=== PATIENT | male | born 1965 | race Caucasian/White ===

== ENCOUNTER 2022-11-06 11:23 | Emergency (ER) | payer OTHER ==
[~2022-11-06] VITALS: Ht 177.8 cm; Wt 63.5 kg
[~2022-11-06 11:23] MED LIST: AMOX500 PO; CYCL10 PO; DIAZ5 PO; DOXY100 PO; GUAPHELA PO; HYDACE5 PO; IBUP600; IBUP600 PO; IBUP800 PO; LAMO25; LORA10ER PO; NAPR550 PO; Norco 5-325 Ta1 EACH PO; OXYACE5T PO; PRED10 PO; QUET200 PO; RXHYDACE PO; RXNAPNA550 PO; TOBDEXOPSU OP; TRAM50 PO; TRAZ50 PO; VALARIAN ROOT
[2022-11-06 11:36] VITALS: BP 108/96
== END 2022-11-06 13:46 | disposition home or self-care (01) ==
LOC: ER 11:23
DX: H61.21 Impacted cerumen, right ear (principal); F17.200 Nicotine dependence, unspecified, uncomplicated; Z88.8 Allergy status to other drugs, medicaments and biological substances
CPT/HCPCS: 69209; 96372-59; 99282-25; A9270; J1885

== ENCOUNTER 2022-11-09 14:26 | Emergency (ER) | payer OTHER ==
[~2022-11-09] VITALS: Ht 177.8 cm; Wt 63.5 kg
[2022-11-09 14:29] VITALS: BP 88/50
[2022-11-09] MEDS ORDERED: VALA500 PO (16:46)
== END 2022-11-09 17:32 | disposition home or self-care (01) ==
LOC: ER 14:26
DX: B02.9 Zoster without complications (principal); F17.200 Nicotine dependence, unspecified, uncomplicated; Z88.8 Allergy status to other drugs, medicaments and biological substances; Z79.899 Other long term (current) drug therapy
CPT/HCPCS: 96372; 99283-25; A9270; J1885

== ENCOUNTER 2023-02-16 12:17 | Emergency (ER) | payer OTHER ==
[~2023-02-16] VITALS: Ht 177.8 cm; Wt 63.5 kg
[~2023-02-16 12:17] MED LIST changes: +VALA500 PO
[2023-02-16 12:19] VITALS: BP 100/74
[2023-02-16 12:42] LABS: BASOPHILS ABSOLUTE AUTO 0.03 K/mm3 (0.00-0.23); BASOPHILS PERCENT AUTO 1 % (0-2); EOSINOPHILS ABSOLUTE AUTO 0.06 K/mm3 (0.00-0.68); EOSINOPHILS PERCENT AUTO 1 % (0-6); Hemoglobin 19.2 g/dL (13.5-17.5); IMMATURE GRAN ABSOLUTE AUTO 0.03 K/mm3 (0.00-0.10); IMMATURE GRAN PERCENT AUTO 1 % (0-1); LYMPHOCYTES ABSOLUTE AUTO 1.62 K/mm3 (0.84-5.20); LYMPHOCYTES PERCENT AUTO 37 % (21-46); MONOCYTES ABSOLUTE AUTO 0.76 K/mm3 (0.16-1.47); MONOCYTES PERCENT AUTO 17 % (4-13); Mean Corpuscular HGB 28.7 pg (26.0-34.0); Mean Corpuscular HGB Conc 33.9 g/dL (31.5-36.5); Mean Corpuscular Volume 85 fL (80-100); Mean Platelet Volume 10.3 fL (9.1-12.4); NEUTROPHILS ABSOLUTE AUTO 1.91 K/mm3 (1.96-9.15); NEUTROPHILS PERCENT AUTO 43 % (41-73); Platelet Count 204 K/mm3 (150-400); RDW Coefficient Variation 14.4 % (11.7-14.2); RDW Standard Deviation 42.7 fL (35.1-46.3); White Blood Cell Count 4.41 K/mm3 (4.00-11.30)
[2023-02-16 12:45] LABS: Hematocrit 56.6 % (37.0-53.0)
[2023-02-16 13:01] LABS: Albumin, Blood 3.7 g/dL (3.4-5.0); Albumin/Globulin Ratio 0.8 (0.8-1.8); Bilirubin, Total 0.6 mg/dL (0.1-1.0); Bun/Creatinine Ratio 17.7 (12.0-20.0); Creatinine, Blood 1.13 mg/dL (0.60-1.20); Globulin, Blood 4.5 g/dL (2.2-4.0); Potassium, Blood 4.4 mmol/L (3.5-5.5); Total Protein, Blood 8.2 g/dL (6.4-8.2)
[2023-02-16 13:09] LABS: Influenza A, PCR NEGATIVE (NEGATIVE); Influenza B, PCR NEGATIVE (NEGATIVE); Resp Syncytial Virus, PCR NEGATIVE (NEGATIVE)
[2023-02-16 13:24] LABS: SARS-Cov-2 (COVID-19) PCR, MMC POSITIVE (NEGATIVE)
[2023-02-16] MEDS ORDERED: IBUP800 PO (14:34)
== END 2023-02-16 15:38 | disposition home or self-care (01) ==
LOC: ER 12:17
PROVIDERS: Student in an Organized Health Care Education/Training Program
DX: U07.1 COVID-19 (principal); F17.200 Nicotine dependence, unspecified, uncomplicated; Z88.8 Allergy status to other drugs, medicaments and biological substances
CPT/HCPCS: 0241U; 71046; 80053; 85025; 93005; 93010; 96361; 96374; 99284-25; J1885; J7030

== ENCOUNTER 2025-02-18 09:51 | Emergency (ER) | payer OTHER ==
[~2025-02-18] VITALS: Ht 182.9 cm; Wt 61.2 kg
[2025-02-18] MEDS ORDERED: Naproxen 250 MG TAB PO ONE (10:15)
[2025-02-18] MEDS ORDERED: NAPR500ERA PO (10:18)
[2025-02-18] MEDS ORDERED: NICODERM CQ1 EA11 TOP (10:18)
[2025-02-18 13:30] VITALS: BP 144/90
== END 2025-02-18 13:37 | disposition home or self-care (01) ==
LOC: ER 09:51
DX: B35.1 Tinea unguium (principal); M79.671 Pain in right foot; F17.200 Nicotine dependence, unspecified, uncomplicated; Z88.8 Allergy status to other drugs, medicaments and biological substances; Z59.89 Other problems related to housing and economic circumstances
CPT/HCPCS: 73660; 99283-25; A9270